=== PATIENT | female | born 2000 | race Caucasian/White ===

== ENCOUNTER 2022-08-10 13:23 | Emergency (ER) | payer OTHER ==
[2022-08-10] MEDS ORDERED: Sodium Chloride 0.9% 10 ML Syringe FLUSH PRN (15:54)
[2022-08-10] MEDS ORDERED: Ketorolac 30 MG/ML SDV IVPUSH ONE (16:54)
[2022-08-10] MEDS ORDERED: Sodium Chloride 0.9% 1,000 ML IV ONE (16:58)
[2022-08-10] MEDS ORDERED: Tamsulosin 0.4 MG Cap.ER PO ONE (19:44)
[2022-08-10] MEDS ORDERED: Cefdinir 300 MG Cap PO ONE (19:45)
== END 2022-08-10 20:10 | disposition home or self-care (01) ==
LOC: JD.ED 13:23
DX: N13.2 Hydronephrosis with renal and ureteral calculous obstruction (principal); N39.0 Urinary tract infection, site not specified
CPT/HCPCS: 36415; 74176; 80053; 81001; 81025; 83735; 85025; 86140; 96360; 99284; A9270; J1885; J7030